=== PATIENT | female | born 1990 | race Caucasian/White ===

== ENCOUNTER → 2024-02-19 | Outpatient (CLI) | payer OTHER | END | disposition home or self-care (01) | LOC: PRENATAL 08:07 | PROVIDERS: ATTEND Obstetrics & Gynecology Maternal & Fetal Medicine | DX: Z76.1 Encounter for health supervision and care of foundling (principal) ==

== ENCOUNTER 2024-04-03 05:31 | Inpatient (IN) | payer OTHER ==
[~2024-04-03] VITALS: Ht 165.1 cm; Wt 96.6 kg
[2024-04-03] MEDS ORDERED: AMPICILLIN SODIUM 2,000 MG VIAL IV ONE (06:00)
[2024-04-03] MEDS ORDERED: AMPICILLIN SODIUM 2,000 MG VIAL ONE (06:23)
[2024-04-03 07:08] LABS: HEMATOCRIT 28.4 % (36.0-45.00); HEMOGLOBIN 9.4 g/dL (12.0-15.00); MEAN CORPUSCULAR HEMOGLOBIN 26.2 pg (27.00-32.0); MEAN CORPUSCULAR HGB CONC 33.1 g/dl (32.0-36.0); PLATELET COUNT 187 K/uL (150-450); RED BLOOD COUNT 3.59 M/uL (4.00-6.00)
[2024-04-03 07:11] LABS: INR 0.96; PARTIAL THROMBOPLASTIN TIME 27.4 SECONDS (22.0-34.0); PROTHROMBIN TIME 10.5 SECONDS (9.0-11.5)
[2024-04-03] MEDS ORDERED: PRENATAL TABLE1 EAC1 PO (07:19)
[2024-04-03] MEDS ORDERED: IRON325 MG PO (07:20)
[2024-04-03 07:44] LABS: URINE BACTERIA 429.6 uL (0.0-1933); URINE EPITHELIAL CELLS 46.8 uL (0.0-38.8); URINE RBC 2.7 uL (0.0-20.8); URINE WBC 27.8 uL (0.0-23.2)
[2024-04-03 07:56] LABS: PH,URINE 6.5; URINE BILIRRUBIN SMALL (NEGATIVE); URINE BLOOD NEGATIVE; URINE GLUCOSE NEGATIVE (NEGATIVE); URINE KETONE TRACE (NEGATIVE); URINE LEUKOCYTE NEGATIVE; URINE NITRATE NEGATIVE; URINE PROTEIN TRACE (NEGATIVE)
[2024-04-03 08:00] LABS: URINE APPEARANCE CLEAR; URINE COLOR YELLOW
[2024-04-03] MEDS ORDERED: RINGERS SOLUTION,LACTATED 1,000 ML IV SCH (08:00)
[2024-04-03] MEDS ORDERED: AMPICILLIN SODIUM 1,000 MG VIAL ONE (11:40)
[2024-04-03] MEDS ORDERED: AMPICILLIN SODIUM 1,000 MG VIAL IV SCH (12:00)
[2024-04-03] MEDS ORDERED: OXYTOCIN 20 UNITS/500ML RL PIGGYBAG IV SCH (12:30)
[2024-04-03] MEDS ORDERED: PROMETHAZINE HCL 25 MG/ML AMPUL IV STA (19:35)
[2024-04-03] MEDS ORDERED: MEPERIDINE HCL/PF 50 MG/ML VIAL IV STA (19:35)
[2024-04-03] MEDS ORDERED: PROMETHAZINE HCL 25 MG/ML AMPUL ONE (19:36)
[2024-04-03] MEDS ORDERED: ERYTHROMYCIN BASE 1 GM TUBE OP ONE (23:36)
[2024-04-03] MEDS ORDERED: LIDOCAINE HCL 1% 10ML VIAL ONE (23:37)
[2024-04-03] MEDS ORDERED: OXYTOCIN 20 UNITS/1000ML RL PIGGYBAG IV ONE (23:37)
[2024-04-03] MEDS ORDERED: CHLORHEXIDINE GLUCONATE 120 ML BOTTLE TOP ONE (23:37)
[2024-04-04] MEDS ORDERED: METHYLERGONOVINE MALEATE 0.2 MG/ML AMPUL ONE (02:04)
[2024-04-04] MEDS ORDERED: METHYLERGONOVINE MALEATE 0.2 MG/ML AMPUL IM ONE (02:05)
[2024-04-04] MEDS ORDERED: OXYTOCIN 1,000 ML IV SCH (02:30)
[2024-04-04] MEDS ORDERED: ERYTHROMYCIN BASE 1 GM TUBE OP SCH (02:30)
[2024-04-04] MEDS ORDERED: CHLORHEXIDINE GLUCONATE 120 ML BOTTLE TOP SCH (02:30)
[2024-04-04] MEDS ORDERED: ACETAMINOPHEN 500 MG GEL..CAP PO PRN (02:30)
[2024-04-04] MEDS ORDERED: OXYTOCIN 20 UNITS/1000ML RL PIGGYBAG IV ONE (05:37)
[2024-04-04 06:59] LABS: HEMATOCRIT 31.2 % (36.0-45.00); HEMOGLOBIN 10.1 g/dL (12.0-15.00); MEAN CELL VOLUME 79.4 fL (80.00-100.00); MEAN CORPUSCULAR HEMOGLOBIN 25.7 pg (27.00-32.0); MEAN CORPUSCULAR HGB CONC 32.3 g/dl (32.0-36.0); PLATELET COUNT 210 K/uL (150-450); RED BLOOD COUNT 3.93 M/uL (4.00-6.00)
[2024-04-04 07:00] LABS: RED CELL DISTRIBUTION WIDTH 31.3 % (11.5-14.5)
[2024-04-04] MEDS ORDERED: FERROUS SULFATE 325 MG TABLET.EC PO SCH (09:00)
[2024-04-04] MEDS ORDERED: PNV,CALCIUM 72/IRON/FOLIC ACID 1 TAB TABLET PO SCH (09:00)
== END 2024-04-05 15:31 | disposition home or self-care (01) | DRG 807 ==
LOC: LDR → OB/GYN 04-04 02:41
PROVIDERS: ADMIT Obstetrics & Gynecology; ATTEND Obstetrics & Gynecology
PROC: 10E0XZZ Delivery of Products of Conception, External Approach (ICD-10-PCS; principal; 2024-04-03)
PROC: 4A1HXCZ Monitoring of Products of Conception, Cardiac Rate, External Approach (ICD-10-PCS; 2024-04-03)
DX: O80 Encounter for full-term uncomplicated delivery (principal); Z37.0 Single live birth; Z3A.39 39 weeks gestation of pregnancy; Z20.822 Contact with and (suspected) exposure to COVID-19